=== PATIENT | male | born 1965 | race Hispanic/Latino ===

== ENCOUNTER 2022-04-17 21:50 | Emergency (ER) | payer OTHER ==
[~2022-04-17] VITALS: Ht 180.3 cm; Wt 79.8 kg
[2022-04-18] MEDS ORDERED: MORPHINE 4 MG SYG IVP ONE (06:30)
[2022-04-18] MEDS ORDERED: ONDANSETRON 4MG INJ IVP ONE (06:30)
[2022-04-18 08:01] VITALS: BP 145/74
== END 2022-04-18 08:03 | disposition home or self-care (01) ==
LOC: EDH 21:50
DX: S52.592A Other fractures of lower end of left radius, initial encounter for closed fracture (principal); S52.692A Other fracture of lower end of left ulna, initial encounter for closed fracture; X58.XXXA Exposure to other specified factors, initial encounter; Y93.89 Activity, other specified; Y92.89 Other specified places as the place of occurrence of the external cause; Y99.8 Other external cause status
CPT/HCPCS: 29125; 73110; 73130; 96374; 96375; 99284; J2270; J2405